=== PATIENT | female | born 1990 | race Caucasian/White ===

== ENCOUNTER → 2017-03-14 | Outpatient (CLI) | payer OTHER ==
[~2017-03-14] MED LIST: MULT-658 PO; ONDA4TAB10 PO
== END | disposition home or self-care (01) ==
LOC: CFH 15:37
PROVIDERS: ATTEND Podiatrist
DX: S93.491A Sprain of other ligament of right ankle, initial encounter (principal); S96.011A Strain of muscle and tendon of long flexor muscle of toe at ankle and foot level, right foot, initial encounter; X58.XXXA Exposure to other specified factors, initial encounter; Y93.89 Activity, other specified; Y92.89 Other specified places as the place of occurrence of the external cause; Y99.8 Other external cause status